=== PATIENT | female | born 1945 | race Caucasian/White ===

== ENCOUNTER 2020-03-06 16:47 | Emergency (ER) | payer MEDICARE ==
[~2020-03-06] VITALS: Ht 165.1 cm; Wt 95.9 kg
[~2020-03-06 16:47] MED LIST: ALDA25TA2 PO; BABY81CH; CALCCHW12 PO; COZA100T PO; DILT180C3 PO; MICA80TA; NEUR300C; PERC5TAB8 OR; PLAV75TA2 PO; SYNT50TA PO; Vitamin D2 PO; XANA0.25 PO; [UNRECOGNIZED DRUG - OTHER] PO
--- NOTE | 2020-03-06 17:19 | REPVR ---
PROCEDURE INFORMATION: Exam: CT Head Without Contrast Exam date and time: 03/06/2020 5:01 PM Age: 74 years old Clinical indication: Weakness, extremity; Additional info: CVA - nursing interventions must not delay CT TECHNIQUE: Imaging protocol: Computed tomography of the head without contrast. Radiation optimization: All CT scans at this facility use at least one of these dose optimization techniques: automated exposure control; mA and/or kV adjustment per patient size (includes targeted exams where dose is matched to clinical indication); or iterative reconstruction. Other technique: STROKE PROTOCOL was implemented. COMPARISON: No relevant prior studies available. FINDINGS: Brain: There is no acute cortical infarction, intracranial hemorrhage or mass. Focal low density is seen anterior margin right caudate head which may be due to prior lacunar infarction.There is mild diffuse heterogeneity of the white matter, most consistent with microangiopathy. Ventricles: No significant ventriculomegaly. Bones/joints: Unremarkable. No acute fracture. Paranasal sinuses: There is no significant mucoperiosteal thickening or air-fluid levels in the paranasal sinuses. Mastoid air cells: The middle ear cavities and mastoid air cells are clear. Vasculature: Atherosclerosis. Soft tissues: Unremarkable. IMPRESSION: No acute cerebral infarction or intracranial hemorrhage. ASSESSMENT: ASPECTS ([place] Stroke Program Early CT Score) is 10. Electronically signed by: Christiane Omer On 03/06/2020 17:19:09 PM
--- NOTE | 2020-03-06 17:29 | REPVR ---
PROCEDURE INFORMATION: Exam: XR Chest, 1 View Exam date and time: 03/06/2020 5:01 PM Age: 74 years old Clinical indication: Other: CVA TECHNIQUE: Imaging protocol: XR of the chest Views: 1 view. COMPARISON: No relevant prior studies available. FINDINGS: Tubes, catheters and devices: Cardiac leads are in place. Lungs: Lungs are clear. Pleural space: No pleural effusion. No pneumothorax. Heart/Mediastinum: No cardiomegaly. Diaphragm: Elevation and/or eventration of the right hemidiaphragm. Bones/joints: Unremarkable. IMPRESSION: No acute cardiopulmonary findings. Electronically signed by: Christiane Omer On 03/06/2020 17:29:06 PM
[2020-03-06 17:34] LABS: INR 1.04; PARTIAL THROMBOPLASTIN TIME 28.7 SECONDS (24.2-38.5); PROTHROMBIN TIME 13.8 SECONDS (12.5-14.3)
[2020-03-06] MEDS ORDERED: BUPR150T5 PO (17:52)
[2020-03-06] MEDS ORDERED: LEVO75TA4 PO (17:52)
[2020-03-06] MEDS ORDERED: AMIT50TA PO (17:52)
[2020-03-06] MEDS ORDERED: PROP80CA PO (17:52)
[2020-03-06] MEDS ORDERED: ZONI50CA11 PO (17:52)
[2020-03-06] MEDS ORDERED: MECL-86 PO (17:52)
[2020-03-06 17:53] LABS: BASO # 0.1 10^3/uL (0.0-0.2); BASO % 0.8 % (0.0-1.0); BLOOD UREA NITROGEN 14 MG/DL (7-18); CALCIUM LEVEL 8.9 MG/DL (8.8-10.2); CARBON DIOXIDE LEVEL 27 MEQ/L (21-32); CHLORIDE LEVEL 112 MEQ/L (98-107); CK-MB VALUE MASS 1.7 NG/ML (<3.6); CPK CREATINE PHOSPHOKINASE 64 U/L (26-192); CREATININE FOR GFR 0.75 MG/DL (0.55-1.30); EOS # 0.3 10^3/uL (0.0-0.5); EOS % 4.7 % (0.0-3.0); GLOMERULAR FILTRATION RATE > 60.0 (>39); GLUCOSE, FASTING 84 MG/DL (70-100); HEMATOCRIT 39.8 % (36.0-47.0); HEMOGLOBIN 12.6 g/dl (12.0-15.5); LYMPH # 2.4 10^3/uL (1.5-5.0); LYMPH % 37.8 % (24.0-44.0); MB/CK RELATIVE INDEX 2.66 (< OR =4); MEAN CORPUSCULAR HEMOGLOBIN 30.3 pg (27.0-33.0); MEAN CORPUSCULAR HGB CONC 31.7 g/dl (32.0-36.5); MEAN CORPUSCULAR VOLUME 95.7 fl (80.0-96.0); MONO # 0.7 10^3/uL (0.0-0.8); MONO % 11.5 % (0.0-5.0); NEUTROPHILS # 2.8 10^3/uL (1.5-8.5); NEUTROPHILS % 44.4 % (36.0-66.0); PLATELET COUNT, AUTOMATED 313 10^3/uL (150-450); POTASSIUM SERUM 4.1 MEQ/L (3.5-5.1); RED BLOOD COUNT 4.16 10^6/uL (4.00-5.40); SODIUM LEVEL 143 MEQ/L (136-145); TROPONIN I < 0.02 NG/ML (< 0.10); WHITE BLOOD COUNT 6.3 10^3/uL (4.0-10.0)
[2020-03-06] MEDS ORDERED: ONDANSETRON 4MG/2ML VIAL IV ONE (18:00)
[2020-03-06] MEDS ORDERED: MORPHINE 4 MG/ML 1ML VIAL/SYRINGE (J2270) IV ONE (18:00)
[2020-03-06] MEDS ORDERED: METOCLOPRAMIDE INJ 10MG/2ML VIAL (J2765 PER 1) IV ONE (18:00)
[2020-03-06 18:21] LABS: ERYTHROCYTE SEDIMENTATION RATE 116 mm/hr (0-30)
--- NOTE | 2020-03-06 19:39 | REPVR ---
PROCEDURE INFORMATION: Exam: MR Head Without Contrast Exam date and time: 03/06/2020 6:56 PM Age: 74 years old Clinical indication: Pain; Headache not specified; Additional info: Headache, blurred vision, HX aneurysm TECHNIQUE: Imaging protocol: MR of the head without contrast. COMPARISON: CT Head without contrast 03/06/2020 5:02 PM FINDINGS: Brain: No restricted diffusion to suggest acute infarction. Increased signal intensity of the deep and subcortical white matter on the FLAIR and T2 weighted sequences is most consistent with microangiopathy. No prior microhemorrhages. No acute hemorrhage. Ventricles: No significant ventriculomegaly. Bones/joints: Unremarkable. Sinuses: There is a small air-fluid level in the left maxillary antrum.The remainder of the paranasal sinuses appear clear. Mastoid air cells: Normal as visualized. No mastoid effusion. Orbits: The orbits are normal. Soft tissues: Unremarkable. IMPRESSION: No acute intracranial findings. Electronically signed by: Christiane Omer On 03/06/2020 19:38:40 PM
--- NOTE | 2020-03-06 19:42 | REPVR ---
PROCEDURE INFORMATION: Exam: MR Angiogram Head Without Contrast, Arteries Exam date and time: 03/06/2020 6:56 PM Age: 74 years old Clinical indication: Pain; Headache; Additional info: Headache, blurred vision, HX aneurysm TECHNIQUE: Imaging protocol: MR angiogram head without contrast. Exam focused on the arteries. COMPARISON: CT Head without contrast 03/06/2020 5:02 PM FINDINGS: ANTERIOR CIRCULATION: Right internal carotid artery: Intracranial segment is patent with no significant stenosis. No aneurysm. Right middle cerebral artery: No occlusion or significant stenosis. No aneurysm. Right anterior cerebral artery: No occlusion or significant stenosis. No aneurysm. Left internal carotid artery: Intracranial segment is patent with no significant stenosis. No definite aneurysm although there is a 2 mm medial extension in the carotid siphon. Left middle cerebral artery: No occlusion or significant stenosis. No aneurysm. Left anterior cerebral artery: No occlusion or significant stenosis. No aneurysm. POSTERIOR CIRCULATION: Right vertebral artery: No occlusion or significant stenosis. No aneurysm. Left vertebral artery: No occlusion or significant stenosis. No aneurysm. Basilar artery: No occlusion or significant stenosis. No aneurysm. Right posterior cerebral artery: No occlusion or significant stenosis. No aneurysm. Left posterior cerebral artery: No occlusion or significant stenosis. No aneurysm. IMPRESSION: No stenosis or occlusion. No definite aneurysm is identified. There is a 2 mm medial extension in the left carotid siphon which could potentially represent an aneurysm or vascular loop. Electronically signed by: Christiane Omer On 03/06/2020 19:42:32 PM
--- NOTE | 2020-03-06 20:35 | ECGEPIP ---
[facility] - ED Test Date: 2020-03-06 Pat Name: JEFF MCNULTY Department: Room: - Gender: Female [employer]: KLEVER : 1945 Requested By: Jen Vega Order Number: [id number] Reading MD: Dorinda Castillo Measurements Intervals [place] Rate: 59 P: 15 AK: 219 QRS: -19 QRSD: 98 T: 38 QT: 428 QTc: 425 Interpretive Statements SINUS BRADYCARDIA WITH FIRST DEGREE AV BLOCK LEFT VENTRICULAR HYPERTROPHY AND ST-T CHANGE baseline artifact may affect interpretation Electronically Signed on 03-06-2020 20:35:38 EDT by Dorinda Castillo
[2020-03-06] MEDS ORDERED: PRED20TA PO (20:48)
[2020-03-06] MEDS ORDERED: predniSONE 20 MG TAB PO ONE (21:00)
[2020-03-06 21:06] VITALS: BP 171/83
== END 2020-03-06 21:22 | disposition home or self-care (01) ==
LOC: M ED 16:47
DX: M31.6 Other giant cell arteritis (principal); R00.1 Bradycardia, unspecified; I44.0 Atrioventricular block, first degree; I51.7 Cardiomegaly; I10 Essential (primary) hypertension; M54.9 Dorsalgia, unspecified; Z86.73 Personal history of transient ischemic attack (TIA), and cerebral infarction without residual deficits; Z86.79 Personal history of other diseases of the circulatory system; Z95.1 Presence of aortocoronary bypass graft; R93.0 Abnormal findings on diagnostic imaging of skull and head, not elsewhere classified; Z79.82 Long term (current) use of aspirin; Z79.899 Other long term (current) drug therapy; Z88.8 Allergy status to other drugs, medicaments and biological substances
CPT/HCPCS: 36415; 70450; 70544; 70551; 71045; 80048; 82550; 82553; 84484; 85025; 85610; 85652; 85730; 86850; 86900; 86901; 93005; 93041; 94760; 96374; 96375; 99285; J2270; J2405; J2765

== ENCOUNTER → 2021-10-15 | Outpatient (CLI) | payer MEDICARE ==
[~2021-10-15] MED LIST changes: +AMIT50TA PO; +BUPR-71 PO; +LEVO75TA4 PO; +MECL-86 PO; +PRED20TA PO; +PROP80CA PO; +ZONI50CA11 PO
== END ==
LOC: M PLAIMG 08:59
PROVIDERS: ATTEND Family Medicine
DX: I63.511 Cerebral infarction due to unspecified occlusion or stenosis of right middle cerebral artery (principal)